=== PATIENT | male | born 2000 | race Caucasian/White ===

== ENCOUNTER 2021-03-19 22:05 | Emergency (ER) | payer SELFPAY ==
[~2021-03-19] VITALS: Ht 172.7 cm; Wt 67.1 kg
[~2021-03-19 22:05] MED LIST: AMOX50SU PO; AZIT200SU PO; CEPH500 PO; CODACEE120 PO; IBUP600 PO; LEVO750 PO; MUPI2TO TOP; Norco 5-325 Ta1 EACH PO
== END 2021-03-20 00:01 | disposition home or self-care (01) ==
LOC: ER 22:05
DX: S62.316A Displaced fracture of base of fifth metacarpal bone, right hand, initial encounter for closed fracture (principal); F10.129 Alcohol abuse with intoxication, unspecified; F17.210 Nicotine dependence, cigarettes, uncomplicated; Z23 Encounter for immunization; W26.9XXA Contact with unspecified sharp object(s), initial encounter
CPT/HCPCS: 29125; 73120; 90471; 90714; 99283-25; A9270